=== PATIENT | female | born 1950 | race Caucasian/White ===

== ENCOUNTER 2025-05-04 11:48 | Observation (INO) ==
[2025-05-04 12:42] LABS: Hematocrit (blood only) 39.4 % (37.0-47.0); Hemoglobin 12.7 g/dL (12.0-16.0); Immature Granulocytes # (auto) 0.09 K/uL (0.01-0.20); Immature Granulocytes % (auto) 0.8 %; Mean Corpuscular Hemoglobin 25.8 pg (25.0-34.0); Mean Corpuscular Volume 80.1 fL (80.0-100.0); Platelet Count 186 K/uL (130-400); RDW Standard Deviation 38.7 fL (36.4-46.3); Red Blood Count 4.92 M/uL (4.20-5.40); White Blood Count 11.44 K/ul (4.8-10.8)
[2025-05-04 13:01] LABS: INR 1.2 (0.9-1.1); Partial Thromboplastin Time 27 Seconds (21-31); Prothrombin Time 12.2 Seconds (9.0-12.0)
--- NOTE | 2025-05-04 13:04 | XRay Report ---
XR chest 1V not portable CLINICAL HISTORY: Chest pain, nonspecific COMPARISON STUDY: None FINDINGS: Lower thoracic spine neurostimulator lead is present. Heart size and pulmonary vasculature are normal. No consolidation or pleural effusion. No pneumothorax. IMPRESSION: No acute findings. ACT 112: Negative or not required by law. Electronically signed by: Ortiz Keene M.D. 05/04/2025 1:03 PM
--- NOTE | 2025-05-04 14:58 | Electrocardiogram Report ---
Test Reason : Blood Pressure : */* mmHG Vent. Rate : 89 BPM Atrial Rate : 89 BPM P-R Int : 114 ms QRS Dur : 86 ms QT Int : 368 ms P-R-T Axes : -10 -49 37 degrees QTcB Int : 447 ms Normal sinus rhythm Left anterior fascicular block Abnormal ECG No previous ECGs available Confirmed by Car Parish ([id number]) on 05/04/2025 2:58:24 PM Referred By: Confirmed By: Car Parish
[2025-05-04 15:50] LABS: Alanine Aminotransferase 38.0 U/L (7-52); Albumin Globulin Ratio 1.1 (0.9-2); Albumin Level 3.7 gm/dl (3.4-5.0); Alkaline Phosphatase 81.0 U/L (34-104); Anion Gap 10.0 (3-11); Bilirubin,Total 0.8 mg/dl (0.2-1.0); Blood Urea Nitrogen 22.0 mg/dl (6-23); Calcium 9.0 mg/dl (8.6-10.3); Carbon Dioxide 23.0 mmol/L (21-32); Chloride 104.0 mmol/L (98-107); Creatinine Clr Calc Pharmacy 51.2 ml/min; Globulin 3.4 gm/dl (2.5-4.0); Glucose 111.0 mg/dl (70-99(Fasting)); Potassium 4.0 mmol/L (3.5-5.1); Sodium 137.0 mmol/L (136-145); Total Protein 7.1 gm/dl (6.0-8.3)
[2025-05-04] MEDS: OPTIRAY 320 125ml IV ONE (16:16)
--- NOTE | 2025-05-04 16:21 | Emergency Department Note ---
Impression & Plan Pulmonary embolism ED Provider Note NAME: CARLOS PICKERING AGE: 74 SEX: F ARRIVES VIA: Walk-In INFORMANT: Patient, ED PROVIDER(S): Og Clemens MD CHIEF COMPLAINT: Shortness of breath, leg pain PLAN: Disposition: Hospitalization Condition: Serious Outpatient prescription management: [none] Referral: [] MEDICAL DECISION MAKING: Patient with history of saddle pulmonary embolism 3 years ago while in [place]. She was on Eliquis at that time and this was weaned down over time for her D-dimer tract and her client insights consultant managed her medications. She was on 2.5 and then stopped it about a month ago. She said increased shortness of breath over the last 4 to 5 days and she also noted some leg swelling and leg pain. Patient found to have PEs on CTA, also likely has DVTs but ultrasound is pending. Her troponin is minimally elevated, remainder of the blood work is generally reassuring as well. Given the amount of clot burden, I think she would benefit from heparin, hospitalization before transitioning to Eliquis. She does feel fairly short of breath despite her normal oxygen levels and normal heart rate. 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 There was mention of an intolerance to blood thinners, however she has tolerated heparin in the past along with Eliquis. She had a previous platelet dysfunction but responded well to anticoagulation in the past. Triage Nursing notes reviewed and agree them. Vital Signs: reviewed and remarkable for [no significant abnormalities] Differential diagnosis: PE, pneumonia, congestive heart failure, DVT, lymphedema ER treatment provided: Patient initiated on heparin drip for bilateral PE Diagnostics interpreted by me: ECG: Normal sinus rhythm, no T wave changes or ST segment changes Cardiac Monitoring: Normal sinus rhythm Laboratory studies: [See below] Borderline troponin, Imaging studies: [See below] Acute pulmonary embolism, fairly large, not saddle. Also with mixed evidence of DVT on venous ultrasound Consultation(s): Case to be discussed with the hospitalist for hospitalization. Case also discussed with radiology HPI: 74/F arrives for evaluation of Shortness of breath, leg pain. Patient states she had a previous saddle PE diagnosed 2 years ago. She was on Eliquis after that, she states she has been "weaning yourself down" from the Eliquis. She stopped it about a month ago. She noted some swelling to her lower extremities and started with shortness of breath over the last week or so. She was concerned about the possibility of DVT and PE. She states she gets her dimers checked once every month or so to trend her levels. ROS: See above HPI for pertinent positives & negatives. A total of [10] systems reviewed and were otherwise negative. PAST MEDICAL HISTORY:[See Below] PAST SURGICAL HISTORY:[See Below] FAMILY HISTORY:[See Below] SOCIAL HISTORY:[See Below] HOME MEDICATIONS:[See Below] ALLERGIES:Patient with listed "allergies" to blood thinners and antiplatelets, she has tolerated heparin and Eliquis in the past and seems to be more of a patient preference due to a unspecified platelet disorder. VITALS:[See Below] PHYSICAL EXAMINATION: Gen: No acute distress, generally well appearing Eyes: PERRL, no redness or injection, EOMI Neck: Supple, normal ROM CV: S1, S2, No murmurs, no lower extremity edema Pulm: CTA bilaterally, no increased work of breathing, no wheezing GI: Abd soft, nontender, normal bowel sounds, no distension : No CVA tenderness, no suprapubic abdominal tenderness or distension Neuro: No acute focal neuro deficits, normal strength and sensation MSK: Bilateral lower extremity swollen, right worse than left, some mild tenderness in the calf area, suspicious for right lower extremity DVT. Skin: No rashes, wounds, or erythema. ED COURSE: Times/Reassessments: 4:00 PM: Patient assessed, had oxygen saturation of 100%, heart rate in the 80s and normal blood pressure. She does seem slightly winded but not severely short of breath and in no acute distress. Bilateral lower extremities are swollen. 4:33 PM: Patient CT scan reviewed, she does have bilateral PEs, does look to be in the more proximal vessels but not a saddle PE. She remains relatively hemodynamically stable, plan for venous duplex of the lower extremities as well to evaluate clot burden. She does have DVT symptoms. Given moderate clot burden and DVT symptoms I think she would benefit from heparin and hospitalization. 5:25 PM: Patient with confirmed bilateral PEs with fairly large clot burden seen on CT scan by the radiologist. They do see may be early right heart strain. Patient remains hemodynamically stable, heparin drip ordered, pharmacy verifying. Og Clemens MD Past Med/Surg History Problem List (Updated 05/04/25 @ 22:43 by Og Clemens MD) HTN (hypertension) History of pulmonary embolism Pulmonary embolism (Acute) Social History Smoking Status: Former smoker Hx Alcohol Use: No Hx Substance Use: No Preferred Language: Egyptian Communication Ability: Effective Education Instructor Required: No Beliefs That Will Affect Care: None Current Living Situation: Spouse Feels Safe at Home: Yes Assistive Devices: Cane, Denture - Upper and Walker Allergies Allergies Allergy/AdvReac Type Severity Reaction Status Date / Time pentazocine Allergy Severe SEIZURES Verified 05/04/25 19:39 chloramphenicol Allergy Intermediate HIVES, SOB Verified 05/04/25 19:39 aspirin Allergy Unknown SEIZURES Verified 05/04/25 19:39 amantadine AdvReac Severe Rectal Unverified 05/04/25 19:39 Bleeding latex AdvReac Intermediate SKIN Verified 05/04/25 19:39 BLISTERING,ITCHINESS BLOOD THINNERS Allergy Unknown BLEEDING Uncoded 05/04/25 19:39 Home Meds Home Medications Medication Instructions Recorded Confirmed milk thistle 400 mg PO DAILY ##0 10/06/09 05/04/25 acetaminophen 500 mg tablet 500 mg PO Q6H PRN Pain 05/04/25 05/04/25 apixaban 2.5 mg tablet (Eliquis) 2.5 mg PO BID 05/04/25 05/04/25 carvedilol 6.25 mg tablet 6.25 mg PO BID 05/04/25 05/04/25 cetirizine 10 mg tablet (Zyrtec) 10 mg PO DAILY PRN Allergic 05/04/25 05/04/25 Reaction cyclobenzaprine 10 mg tablet 10 mg PO Q8H 05/04/25 05/04/25 desmopressin 10 mcg/spray (0.1 mL) 1 spray intranasal DAILY 05/04/25 05/04/25 nasal spray (non-refrigerated) loperamide 2 mg tablet (Imodium 2 mg PO QID PRN upset stomach 05/04/25 05/04/25 A-D) olmesartan 40 mg tablet 40 mg PO QPM 05/04/25 05/04/25 oxycodone-acetaminophen 5 mg-325 1 tab PO Q6H PRN Pain 05/04/25 05/04/25 mg tablet tobramycin 0.3 %-dexamethasone 0.1 1 drp OPB QID 05/04/25 05/04/25 % eye drops,suspension Results & Data (ED) Vital Signs Vital Signs - 24 hr 05/04/25 11:53 05/04/25 11:58 05/04/25 15:34 Temperature 37.1 C Temperature Source Temporal Artery Scan Pulse Rate 93 H Pulse Rate [Apical] 89 Pulse Rate from SpO2 Sensor Respiratory Rate 20 20 Respiratory Effort / Characteristics Non-Labored Spontaneous Respiratory Depth Normal Normal Respiratory Pattern Regular Regular Blood Pressure 126/83 Blood Pressure [Right Arm] 139/89 Blood Pressure Mean 97 Blood Pressure Mean [Right Arm] 105 Pulse Oximetry 98 96 Oxygen Delivery Method Room Air Room Air Sepsis Recent Fever Within 48 Hours No Sepsis New/Unexplained Change in Mental Status N/A Sepsis Action Taken by Nursing No Action Required 05/04/25 15:34 05/04/25 15:40 05/04/25 16:33 Temperature Temperature Source Pulse Rate 82 Pulse Rate [Apical] Pulse Rate from SpO2 Sensor 81 Respiratory Rate 25 H Respiratory Effort / Characteristics Respiratory Depth Respiratory Pattern Blood Pressure 162/84 H Blood Pressure [Right Arm] Blood Pressure Mean 110 Blood Pressure Mean [Right Arm] Pulse Oximetry 96 98 Oxygen Delivery Method Room Air Sepsis Recent Fever Within 48 Hours Sepsis New/Unexplained Change in Mental Status Sepsis Action Taken by Nursing 05/04/25 17:00 05/04/25 17:00 Temperature Temperature Source Pulse Rate 76 79 Pulse Rate [Apical] Pulse Rate from SpO2 Sensor 77 Respiratory Rate 17 Respiratory Effort / Characteristics Respiratory Depth Respiratory Pattern Blood Pressure 166/92 H 166/92 H Blood Pressure [Right Arm] Blood Pressure Mean 116 126 Blood Pressure Mean [Right Arm] Pulse Oximetry 95 98 Oxygen Delivery Method Sepsis Recent Fever Within 48 Hours Sepsis New/Unexplained Change in Mental Status Sepsis Action Taken by [facility] Medications Current Medication List: was personally reviewed by me Additional Comments: Recently stopped Eliquis approximately 1 month ago Laboratory Data Attestation: I reviewed the patient's lab results. Borderline troponin, otherwise normal kidney function, normal CBC. Plan add on coags given needing heparin drip. 05/04/25 12:13 05/04/25 15:17 Lab Results 05/04/25 05/04/25 Range/Units 12:13 15:17 WBC 11.44 H (4.8-10.8) K/ul RBC 4.92 (4.20-5.40) M/uL Hgb 12.7 (12.0-16.0) g/dL Hct 39.4 (37.0-47.0) % MCV 80.1 (80.0-100.0) fL MCH 25.8 (25.0-34.0) pg MCHC 32.2 (32.0-36.0) g/dL RDW Std Deviation 38.7 (36.4-46.3) fL RDW Coeff of Leta 13.3 (11.5-14.5) % Plt Count 186 (130-400) K/uL MPV 11.4 (9.4-12.4) fL Immature Gran % (Auto) 0.8 % Neut % (Auto) 75.5 % Lymph % (Auto) 11.8 % Graham % (Auto) 8.0 % Eos % (Auto) 3.6 % Baso % (Auto) 0.3 % Neut # (Auto) 8.64 H (1.40-6.50) K/uL Lymph # (Auto) 1.35 (1.20-3.40) K/uL Graham # (Auto) 0.91 H (0.11-0.59) K/uL Eos # (Auto) 0.41 (0.00-0.50) K/uL Baso # (Auto) 0.04 (0.00-0.20) K/uL Immature Gran # (Auto) 0.09 (0.01-0.20) K/uL PT 12.2 H (9.0-12.0) Seconds INR 1.2 H (0.9-1.1) APTT 27 (21-31) Seconds PTT Ratio 1.0 Sodium 137 (136-145) mmol/L Potassium 4.0 (3.5-5.1) mmol/L Chloride 104 (98-107) mmol/L Carbon Dioxide 23 (21-32) mmol/L Anion Gap 10 (3-11) BUN 22 (6-23) mg/dl Creatinine 1.16 (0.6-1.2) mg/dl Est Cr Clr Drug Dosing 51.2 ml/min eGFR 49.47 BUN/Creatinine Ratio 19.0 (10-20) Glucose 111 H (70-99(Fasting)) mg/dl Calcium 9.0 (8.6-10.3) mg/dl Total Bilirubin 0.8 (0.2-1.0) mg/dl AST 30 (13-39) U/L ALT 38 (7-52) U/L Alkaline Phosphatase 81 (34-104) U/L Troponin I High Sens 15.2 H (0-14) pg/ml Total Protein 7.1 (6.0-8.3) gm/dl Albumin 3.7 (3.4-5.0) gm/dl Globulin 3.4 (2.5-4.0) gm/dl Albumin/Globulin Ratio 1.1 (0.9-2) Administered Medications Oxycodone/Acetaminophen (Oxycodone/Acetaminophen 5mg/325mg Tab) 1 tab PO Q8H PRN PRN Reason: Pain 7,8,9,10 Stop: 05/18/25 21:01 Last Admin: 05/04/25 21:36 Dose: 1 tab Documented By: ATS Discontinued Medications Heparin Sodium (Porcine) (Heparin Sod (Porcine) 1000 Unit/Ml) 1 units IV NOW ONE Stop: 05/04/25 17:00 Last Admin: 05/04/25 18:56 Dose: Not Given Documented By: michell Heparin Sodium/Dextrose (Heparin Iv Adult Wt-Based Standard W/ Initial Bolus Protocol) 1 each IV NOW STA; Protocol Stop: 05/04/25 16:45 Last Admin: 05/04/25 17:46 Dose: Not Given Documented By: LATOYA Heparin Sodium/Dextrose (Heparin 57990 Unit/500 Ml D5w) 25,000 units in 500 mls @ 27 mls/hr IV .[id number] [facility]; Protocol Stop: 06/03/25 16:59 Last Admin: 05/04/25 18:56 Dose: Not Given Documented By: michell Ioversol (Optiray 320 125ml) 117 ml IV ONCE ONE Stop: 05/04/25 16:16 Last Admin: 05/04/25 16:16 Dose: 117 ml Documented By: Imaging Data Attestation: I personally reviewed and interpreted this imaging study as follows: My Impression: Acute pulmonary embolism, bilaterally, no saddle PE Radiologist's Impression: Chest X-Ray 05/04/25 11:58 XR chest 1V not portable CLINICAL HISTORY: Chest pain, nonspecific COMPARISON STUDY: None FINDINGS: Lower thoracic spine neurostimulator lead is present. Heart size and pulmonary vasculature are normal. No consolidation or pleural effusion. No pneumothorax. IMPRESSION: No acute findings. ACT 112: Negative or not required by law. Electronically signed by: Ortiz Keene M.D. 05/04/2025 1:03 PM Chest CTA 05/04/25 15:45 Exam: CT angiogram chest with pulmonary embolus protocol. Reason for exam: Shortness of breath with history of previous pulmonary emboli. Previous studies: None available. FINDINGS: The study is positive with a large number of filling defects in the main pulmonary arteries bilaterally. No central saddle embolus is seen at this time. Multiple small emboli projected below the pulmonary arteries bilaterally. The ventricular is mildly enlarged suggesting right ventricular strain physiology. The shows no evidence of aneurysm or dissection at the examined levels. There is a small right pleural effusion with some areas of atelectasis in the right lower lobe. IMPRESSION: 1. Positive study for pulmonary emboli with a relatively large clot burden and probable early right ventricular strain physiology. 2. Negative for aortic aneurysm or dissection. 3. Small right pleural effusion with some atelectasis in the right lower lobe. Lungs otherwise clear. The emergency department physician was informed of this finding at 1720 hours on today's date. Electronically signed by Ortiz Estrella 05-04-2025 5:27 PM Venous Doppler Study 05/04/25 16:24 Exam: Venous Doppler ultrasound lower extremities bilateral. Reason for exam: Pulmonary embolus. History of DVT. FINDINGS: The study is positive. There is mixed occlusive and subocclusive thrombus seen in the mid distal right femoral vein, popliteal vein lesser saphenous vein to the mid calf. Duplicated posterior tibial veins show thrombus as does one of 2 peroneal veins. In the left lower extremity there is nonocclusive thrombus seen in the distal femoral vein, distal popliteal vein and 2 of 2 paired posterior tibial veins. Some thrombus with intact flow is seen in the left peroneal vein. Left anterior tibial veins appear patent. IMPRESSION: Positive study. 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 Electronically signed by Ortiz Estrella 05-04-2025 7:18 PM Discharge Plan Visit Data Chief Complaint: Shortness of Breath/Dyspnea Stated Complaint: SOB ED Provider: Og Clemens Discharge Problem: Pulmonary embolism Patient Disposition: Admitted As Inpatient Condition: Serious Discharge Instructions Interventions: ED Discharge Assessment Last Done: 05/04/25 18:47
--- NOTE | 2025-05-04 17:28 | CT Scan Report ---
Exam: CT angiogram chest with pulmonary embolus protocol. Reason for exam: Shortness of breath with history of previous pulmonary emboli. Previous studies: None available. FINDINGS: The study is positive with a large number of filling defects in the main pulmonary arteries bilaterally. No central saddle embolus is seen at this time. Multiple small emboli projected below the pulmonary arteries bilaterally. The ventricular is mildly enlarged suggesting right ventricular strain physiology. The shows no evidence of aneurysm or dissection at the examined levels. There is a small right pleural effusion with some areas of atelectasis in the right lower lobe. IMPRESSION: 1. Positive study for pulmonary emboli with a relatively large clot burden and probable early right ventricular strain physiology. 2. Negative for aortic aneurysm or dissection. 3. Small right pleural effusion with some atelectasis in the right lower lobe. Lungs otherwise clear. The emergency department physician was informed of this finding at 1720 hours on today's date. Electronically signed by Ortiz Estrella 05-04-2025 5:27 PM
[2025-05-04] MEDS: Heparin IV Adult Wt-Based Standard w/ INITIAL Bolus Protocol IV STA (17:46)
--- NOTE | 2025-05-04 18:34 | History & Physical Report ---
Date of Service May 04, 2025 Assessment & Plan (1) Pulmonary embolism: (2) History of pulmonary embolism: (3) HTN (hypertension): Plan Patient is a 74yo F who presented into the hospital with shortness of breath after discontinuing her eliquis on 04/07/25. Chest CT showed positive study for PE. Will admit to monitor for worsening symptoms. PE - Will start patient on Eliquis 10mg for 7 days. Will not use heparin. - Her 02 sat is 98% on room air and is otherwise hemodynamically stable. - EKG showed normal sinus rhythm, and left anterior fascicular block - CBC w/diff and BMP in AM - Will continue to monitor. HTN - Continue olmesartan - Continue diltiazem Elevated Troponin - Trops were 15.2 - Will repeat troponin again until peak. Code Status: Full DVT Prophylaxis: Eliquis History of Present Illness Chief Complaint: Shortness of Breath Primary Care Provider: Valdez Goode MD Patient with history of saddle pulmonary embolism, presents into the hospital with shortness of breath. She states that in October 2021 she had a saddle PE and was then treated with Eliquis. She was originally on 5mg of Eliquis then brought down to 2.5mg. Then on 04/07 took her last dose of 2.5mg. Patient denied any internal bleeding kacey nts for the three years she was on Eliquis. Between 04/28-04/30 she felt very short of breath and pain in her lower back. She states her breathing is getting better, but patient's said it hasnt. On 04/08 or 04/10 felt like her right leg "blew up". She states she has chest pain on exertion but its not in the middle of the chest but more so directed underneath the right breast. Patient does have swollen legs but state they are better than what they were. Denies fever, cough, nausea, headache. Allergies Allergy/AdvReac Type Severity Reaction Status Date / Time pentazocine Allergy Severe SEIZURES Verified 05/04/25 19:39 chloramphenicol Allergy Intermediate HIVES, SOB Verified 05/04/25 19:39 aspirin Allergy Unknown SEIZURES Verified 05/04/25 19:39 amantadine AdvReac Severe Rectal Unverified 05/04/25 19:39 Bleeding latex AdvReac Intermediate SKIN Verified 05/04/25 19:39 BLISTERING,ITCHINESS BLOOD THINNERS Allergy Unknown BLEEDING Uncoded 05/04/25 19:39 Home Medications Medication Instructions Recorded Confirmed Type milk thistle 400 mg PO DAILY ##0 10/06/09 05/04/25 History acetaminophen 500 mg tablet 500 mg PO Q6H PRN Pain 05/04/25 05/04/25 History carvedilol 6.25 mg tablet 6.25 mg PO BID 05/04/25 05/04/25 History cetirizine 10 mg tablet (Zyrtec) 10 mg PO DAILY PRN Allergic 05/04/25 05/04/25 History Reaction cyclobenzaprine 10 mg tablet 10 mg PO Q8H 05/04/25 05/04/25 History desmopressin 10 mcg/spray (0.1 mL) 1 spray intranasal DAILY 05/04/25 05/04/25 History nasal spray (non-refrigerated) loperamide 2 mg tablet (Imodium 2 mg PO QID PRN upset stomach 05/04/25 05/04/25 History A-D) olmesartan 40 mg tablet 40 mg PO QPM 05/04/25 05/04/25 History oxycodone-acetaminophen 5 mg-325 1 tab PO Q6H PRN Pain 05/04/25 05/04/25 History mg tablet tobramycin 0.3 %-dexamethasone 0.1 1 drp OPB QID 05/04/25 05/04/25 History % eye drops,suspension apixaban 5 mg tablet (Eliquis) 5 mg PO BID #74 tabs 05/05/25 Rx Past Med/Surg History Problem List (Updated 05/04/25 @ 22:43 by Og Clemens MD) HTN (hypertension) History of pulmonary embolism Pulmonary embolism (Acute) Social History Smoking Status: Former smoker Hx Alcohol Use: No Hx Substance Use: No Preferred Language: Persian Communication Ability: Effective Plaster Tender Required: No Beliefs That Will Affect Care: None Current Living Situation: Spouse Feels Safe at Home: Yes Assistive Devices: Cane, Denture - Upper and Walker Review of Systems Review of Systems: as per HPI Physical Exam Constitutional: WD/WN, vitals as above Eyes: + anicteric sclerae and EOM intact bilat erally Respiratory: normal respiratory effort, lungs clear to auscultation Cardiovascular: Rate/Rhythm: regular rate and regular rhythm Heart Sounds: normal S1 and normal S2; no murmur Extremities: + edema (legs were swollen B/L but no pitting edema.) Skin: no rashes, warm and dry Psychiatric: Eye Contact: good eye contact Speech: normal rate/rhythm/volume of speech Thought Process: goal directed thought process and linear/logical thought process Results & Data Results & Data Vital Signs (Past 12 Hours) Vital Signs Temp Pulse Pulse Resp BP BP Pulse Ox 05/04/25 17:00 79 166/92 H 98 05/04/25 17:00 76 17 166/92 H 95 05/04/25 16:33 25 H 162/84 H 98 05/04/25 15:40 82 05/04/25 15:34 96 05/04/25 15:34 89 20 139/89 96 05/04/25 11:53 37.1 C 93 H 20 126/83 98 O2 Del Method 05/04/25 17:00 05/04/25 17:00 05/04/25 16:33 05/04/25 15:40 05/04/25 15:34 Room Air 05/04/25 15:34 Room Air 05/04/25 11:53 Room Air Diagnostic Findings Chest X-Ray 05/04/25 11:58 XR chest 1V not portable CLINICAL HISTORY: Chest pain, nonspecific COMPARISON STUDY: None FINDINGS: Lower thoracic spine neurostimulator lead is present. Heart size and pulmonary vasculature are normal. No consolidation or pleural effusion. No pneumothorax. IMPRESSION: No acute findings. ACT 112: Negative or not required by law. Electronically signed by: Ortiz Keene M.D. 05/04/2025 1:03 PM Chest CTA 05/04/25 15:45 Exam: CT angiogram chest with pulmonary embolus protocol. Reason for exam: Shortness of breath with history of previous pulmonary emboli. Previous studies: None available. FINDINGS: The study is positive with a large number of filling defects in the main pulmonary arteries bilaterally. No central saddle embolus is seen at this time. Multiple small emboli projected below the pulmonary arteries bilaterally. The ventricular is mildly enlarged suggesting right ventricular strain physiology. The shows no evidence of aneurysm or dissection at the examined levels. There is a small right pleural effusion with some areas of atelectasis in the right lower lobe. IMPRESSION: 1. Positive study for pulmonary emboli with a relatively large clot burden and probable early right ventricular strain physiology. 2. Negative for aortic aneurysm or dissection. 3. Small right pleural effusion with some atelectasis in the right lower lobe. Lungs otherwise clear. The emergency department physician was informed of this finding at 1720 hours on today's date. Electronically signed by Ortiz Estrella 05-04-2025 5:27 PM Code Status & VTE Plan VTE Prophylaxis Plan VTE Prophylaxis will be ordered: Yes Supervising Physician Co-Signing Physician Notes I personally examined the patient and verified all kruger points of history and exam, discussed case, and agree with decision making with Dr Zonia MONTALVO. feels like prior PEs. symptoms for days - after repeated urgings came to ER. vitals noted nad heent nc at mmm breathing unlabored lungs clear no r/r/w good effort cardio reg. 95+% on room air recurrent PE -extensive bilateral lower extremity DVTs precipitating PE - had stopped eliquis (fear of serious bleeding - but fortunately has not actually had any of significance and was on eliquis for ~3.5yrs since last VTE episode). no indication for thrombolysis/overall stable. restart eliquis (10mg bid x 7 days, then 5mg bid). discussed should be on some dosing indefinitely given recurrence and high risk of additional recurrences if off blood thinners. otherwise as above Resident Activity Tracking Resident Involvement: Resident Care Provided Care Provided: Adult Hospital Medicine
--- NOTE | 2025-05-04 18:45 | Billing Data ---
Date of Service May 04, 2025 Coding Level of Care Code 63814 INT INP/OBS CARE
[2025-05-04] MEDS ORDERED: ACETAMINOPHEN 325 MG TAB PO PRN (18:53)
[2025-05-04] MEDS ORDERED: ONDANSETRON INJ 2 MG/ML 2 ML VIAL IV PRN (18:53)
[2025-05-04] MEDS ORDERED: MELATONIN 3 MG TAB PO PRN (18:53)
[2025-05-04] MEDS ORDERED: POLYETHYLENE (MIRALAX) 17 GM PACK PO PRN (18:53)
[2025-05-04] MEDS: HEPARIN SOD (PORCINE) 1000 UNIT/ML IV ONE (18:56)
[2025-05-04] MEDS: HEPARIN 25000 UNIT/500 ML D5W 25,000 UNITS/500 ML BAG IV SCH (18:56)
--- NOTE | 2025-05-04 19:18 | Ultrasound Report ---
Exam: Venous Doppler ultrasound lower extremities bilateral. Reason for exam: Pulmonary embolus. History of DVT. FINDINGS: The study is positive. There is mixed occlusive and subocclusive thrombus seen in the mid distal right femoral vein, popliteal vein lesser saphenous vein to the mid calf. Duplicated posterior tibial veins show thrombus as does one of 2 peroneal veins. In the left lower extremity there is nonocclusive thrombus seen in the distal femoral vein, distal popliteal vein and 2 of 2 paired posterior tibial veins. Some thrombus with intact flow is seen in the left peroneal vein. Left anterior tibial veins appear patent. IMPRESSION: Positive study. 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 Electronically signed by Ortiz Estrella 05-04-2025 7:18 PM
[2025-05-04] MEDS: APIXABAN 5 MG TABLET PO SCH (22:59)
[2025-05-04] MEDS: LOSARTAN POTASSIUM 25 MG TAB PO SCH (22:59)
[2025-05-05] MEDS: CYCLOBENZAPRINE HCL 10 MG TAB PO PRN (02:50)
[2025-05-05 09:08] LABS: Hematocrit (blood only) 36.8 % (37.0-47.0); Hemoglobin 11.8 g/dL (12.0-16.0); Immature Granulocytes # (auto) 0.10 K/uL (0.01-0.20); Immature Granulocytes % (auto) 1.0 %; Mean Corpuscular Hemoglobin 25.7 pg (25.0-34.0); Mean Corpuscular Volume 80.0 fL (80.0-100.0); Platelet Count 200 K/uL (130-400); RDW Standard Deviation 38.4 fL (36.4-46.3); Red Blood Count 4.60 M/uL (4.20-5.40); White Blood Count 9.85 K/ul (4.8-10.8)
[2025-05-05 09:18] LABS: Anion Gap 11.0 (3-11); Blood Urea Nitrogen 21.0 mg/dl (6-23); Calcium 8.9 mg/dl (8.6-10.3); Carbon Dioxide 23.0 mmol/L (21-32); Chloride 105.0 mmol/L (98-107); Creatinine Clr Calc Pharmacy 61.5 ml/min; Glucose 111.0 mg/dl (70-99(Fasting)); Potassium 3.8 mmol/L (3.5-5.1); Sodium 139.0 mmol/L (136-145)
--- NOTE | 2025-05-05 13:37 | Discharge Summary ---
Date of Service May 05, 2025 Admission HPI Per Admitting Provider Patient with history of saddle pulmonary embolism, presents into the hospital with shortness of breath. She states that in October 2021 she had a saddle PE and was then treated with Eliquis. She was originally on 5mg of Eliquis then brought down to 2.5mg. Then on 04/07 took her last dose of 2.5mg. Patient denied any internal bleeding events for the three years she was on Eliquis. Between 04/28-04/30 she felt very short of breath and pain in her lower back. She states her breathing is getting better, but patient's said it hasnt. On 04/08 or 04/10 felt like her right leg "blew up". She states she has chest pain on exertion but its not in the middle of the chest but more so directed underneath the right breast. Patient does have swollen legs but state they are better than what they were. Denies fever, cough, nausea, headache. Admission Exam Per Admitting Provider Physical Exam Constitutional: WD/WN, vitals as above Eyes: + anicteric sclerae and EOM intact bilat erally Respiratory: normal respiratory effort, lungs clear to auscultation Cardiovascular: Rate/Rhythm: regular rate and regular rhythm Heart Sounds: normal S1 and normal S2; no murmur Extremities: + edema (legs were swollen B/L but no pitting edema.) Skin: no rashes, warm and dry Psychiatric: Eye Contact: good eye contact Speech: normal rate/rhythm/volume of speech Thought Process: goal directed thought process and linear/logical thought process Principal Diagnosis PE Discharge Exam Constitutional WD/WN, vitals as above Eyes + anicteric sclerae and EOM intact bilaterally Respiratory normal respiratory effort, lungs clear to auscultation Cardiovascular Rate/Rhythm: regular rate and regular rhythm Heart Sounds: normal S1 and normal S2; no murmur Skin no rashes, warm and dry Psychiatric Eye Contact: good eye contact Speech: normal rate/rhythm/volume of speech Thought Process: goal directed thought process and linear/logical thought process Discharge Data Allergies Allergy/AdvReac Type Severity Reaction Status Date / Time pentazocine Allergy Severe SEIZURES Verified 05/04/25 19:39 chloramphenicol Allergy Intermediate HIVES, SOB Verified 05/04/25 19:39 aspirin Allergy Unknown SEIZURES Verified 05/04/25 19:39 amantadine AdvReac Severe Rectal Unverified 05/04/25 19:39 Bleeding latex AdvReac Intermediate SKIN Verified 05/04/25 19:39 BLISTERING,ITCHINESS BLOOD THINNERS Allergy Unknown BLEEDING Uncoded 05/04/25 19:39 Consultations 05/04/25 17:43 ED Decision to Admit Stat 05/05/25 11:57 Consult [facility] canal driver Routine Ordered Studies 05/04/25 15:45 CT angio chest PE protocol Stat 05/04/25 16:24 US venous duplex leg [US venous doppler LE BI] Stat Chest X-Ray 05/04/25 11:58 XR chest 1V not portable CLINICAL HISTORY: Chest pain, nonspecific COMPARISON STUDY: None FINDINGS: Lower thoracic spine neurostimulator lead is present. Heart size and pulmonary vasculature are normal. No consolidation or pleural effusion. No pneumothorax. IMPRESSION: No acute findings. ACT 112: Negative or not required by law. Electronically signed by: Ortiz Keene M.D. 05/04/2025 1:03 PM Chest CTA 05/04/25 15:45 Exam: CT angiogram chest with pulmonary embolus protocol. Reason for exam: Shortness of breath with history of previous pulmonary emboli. Previous studies: None available. FINDINGS: The study is positive with a large number of filling defects in the main pulmonary arteries bilaterally. No central saddle embolus is seen at this time. Multiple small emboli projected below the pulmonary arteries bilaterally. The ventricular is mildly enlarged suggesting right ventricular strain physiology. The shows no evidence of aneurysm or dissection at the examined levels. There is a small right pleural effusion with some areas of atelectasis in the right lower lobe. IMPRESSION: 1. Positive study for pulmonary emboli with a relatively large clot burden and probable early right ventricular strain physiology. 2. Negative for aortic aneurysm or dissection. 3. Small right pleural effusion with some atelectasis in the right lower lobe. Lungs otherwise clear. The emergency department physician was informed of this finding at 1720 hours on today's date. Electronically signed by Ortiz Estrella 05-04-2025 5:27 PM Venous Doppler Study 05/04/25 16:24 Exam: Venous Doppler ultrasound lower extremities bilateral. Reason for exam: Pulmonary embolus. History of DVT. FINDINGS: The study is positive. There is mixed occlusive and subocclusive thrombus seen in the mid distal right femoral vein, popliteal vein lesser saphenous vein to the mid calf. Duplicated posterior tibial veins show thrombus as does one of 2 peroneal veins. In the left lower extremity there is nonocclusive thrombus seen in the distal femoral vein, distal popliteal vein and 2 of 2 paired posterior tibial veins. Some thrombus with intact flow is seen in the left peroneal vein. Left anterior tibial veins appear patent. IMPRESSION: Positive study. 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 Electronically signed by Ortiz Estrella 05-04-2025 7:18 PM Hospital Course (1) Pulmonary embolism: (2) History of pulmonary embolism: (3) HTN (hypertension): Plan Patient is a 74yo F who presented into the hospital with shortness of breath after discontinuing her eliquis on 04/07/25. Chest CT showed positive study for PE. Will admit to monitor for worsening symptoms. PE - Will start patient on Eliquis 10mg for 7 days. Last dose is morning of 05/11/24. 5mg start on evening of 05/11/25. Can change back to 2.5mg if symptoms are resolved and back to normal in 3-6 months. - Her 02 sat is 98% on room air and is otherwise hemodynamically stable. - EKG showed normal sinus rhythm, and left anterior fascicular block - CBC w/diff and BMP in AM - Will continue to monitor. HTN - Continue olmesartan - Continue diltiazem Elevated Troponin - Trops trended were 15.2 but trended downwards. Code Status: Full DVT Prophylaxis: Eliquis Total Time Total Time Spent Total Time Spent (In Minutes): <30 Discharge Plan Discharge Items Patient Disposition: Home - Self-Care Reason For Visit: PE Discharge Diagnosis: PE Condition on Discharge: Fair Activity: Resume your previous activity Non-emergency contact: Primary Care Provider Call non-emergency contact if: your symptoms worsen, your pain is not controlled, your pain is worsening and your temperature is above 101.5 Follow-up/Referrals: Shamir Kingston MD [Outside Practitioners] - (Follow up ~1 week) Valdez Goode MD [Primary Care Provider] - 05/15/25 2:00 pm Diet: Heart Healthy Addtl Attending Provider Instructions: You were admitted into the hospital due to shortness of breath. We provided imaging of your chest to see what could be causing you to have trouble breathing. We found on the CT scan that you had clots in your lungs, otherwise known as "pulmonary embolisms". We started you back on Eliquis 10mg to help prevent more clots being formed. Yesterday we talked about pulmonary embolisms which are clots that go into your lung which blocks the blood reaching to a part of the lung to get oxygen. We wanted to watch you over the night to make sure everything was okay. Today you seem good to leave and go back home. We talked about strokes with you yesterday and discussed about the anatomy of the heart. The left and right atrium are the top chambers of our heart, and when we are in our mother's belly we have a little hole between the left and right atria, which is normal. Then once we are born a majority of people have that hole closed. We believe you are one of the majority. This is because blood flow goes from the right atrium to the right ventricle to the pulmonary artery to the lungs, then goes fom the lungs to the left side of the heart, then out to the rest of your body. If you had a hole in your left and right atrium, some blood can skip going to the lung and go to the left side of the heart, which will then go to the rest of the body. If you had a clot go to your brain, it would have to go through that hole. However because you had a pulmonary embolism, it shows that you did not have a hole in you heart, and instead the clot went to your michelle gs. We also discussed how the body gets rid of clots. After a while, your body either gets rid of the clot, or it gets compressed down towards the bottom of your blood vessel. This is why the repeat imaging of your chest didn't show any clots. You also brought up the good question of if you need to be on Eliquis indefinitely, and we recommend you do so. Not only did you have a pulmonary embolism in 2021, but when you tried to be off Eliquis on 04/07/25, you had another clot within less than a month. And sadly since this is an "unprovoked" clot (a clot that forms without any obvious reason, such as a car crash breaking your legs), studies have shown that the chance of getting another clot in 5 years is 30% if you are not on blood thinners. It seems like your body just likes to create clots compared to other people. Fortunately, when you were on Eliquis you didn't have any bleeding events which is a great sign. With all those reasons, we recommend to be on the Eliquis indefinitely. Please follow-up with you PCP within the next week and the stone crusher operator within the next week or two to monitor your symptoms and to discuss your Eliquis. Medication Change - Eliquis: Take 10mg (2 tabs twice a day) by mouth for 7 days. Followed by 5mg (one tab twice a day) by mouth. Last dose of 10mg should be the morning of 05/11/25. Start 5mg dose in the evening of 05/11/25. CONTACT YOUR PRIMARY CARE PROVIDER if you experience any of the following: Worsening of symptoms Fever, chills, or fatigue Difficulty following your treatment plan, or difficulty taking medications CALL 911 OR GO TO THE EMERGENCY DEPARTMENT if you experience any of the following: Sudden, severe abdominal pain or nausea/vomiting Severe chest pain, or chest pain that radiates (moves) to your jaw or arm Sudden, severe shortness of breath or difficulty breathing Thank you for allowing us to participate in your care. Pending Studies at Discharge: No Stand-Alone Forms: [facility], Smoking Cessation Medications and DC Order Prescriptions: New Eliquis 5 mg tablet 5 mg PO BID Qty: 74 0RF Rx Instructions: Take 10mg (2 tabs twice a day) by mouth for 7 days. Followed by 5mg (one tab twice a day) by mouth. Last dose of 10mg should be the morning of 05/11/25. Start 5mg dose in the evening of 05/11/25. Continued milk thistle 400 mg PO DAILY Qty: 0 cyclobenzaprine 10 mg tablet 10 mg PO Q8H carvedilol 6.25 mg tablet 6.25 mg PO BID cetirizine [Zyrtec] 10 mg Tablet 10 mg PO DAILY PRN (Reason: Allergic Reaction) desmopressin 10 mcg/spray (0.1 mL) spray with pump 1 spray INTRANASAL DAILY loperamide [Imodium A-D] 2 mg Tablet 2 mg PO QID PRN (Reason: upset stomach) acetaminophen 500 mg Tablet 500 mg PO Q6H PRN (Reason: Pain) oxycodone-acetaminophen 5-325 mg tablet 1 tab PO Q6H PRN (Reason: Pain) tobramycin-dexamethasone 0.3-0.1 % drops,suspension 1 drp OPB QID Rx Instructions: for one week then stop olmesartan 40 mg tablet 40 mg PO QPM Discontinued Eliquis 2.5 mg tablet 2.5 mg PO BID Rx Instructions: patient had stopped taking; last dose was 04/07/25 Discharge Orders: Discharge Order (Routine); Ordered 05/05/25 Ordered By: Mega Gonzalez/Other Patient Handouts: Eating Heart-Healthy Foods Admission Data Admit Date/Time: 05/04/25 18:32 Attending Provider: Valdez Deal Admit Provider: Mega Brar Primary Care Provider: Valdez Goode Other Providers: Corin Coffey; Valdez Deal Other Interventions: Discharge Summary Assessment (RN) Last Done: 05/05/25 14:23 Supervising Physician Co-Signing Physician Notes I personally examined the patient and verified all kruger points of history and exam, discussed case, and agree with decision making with Dr Brar still MONTALVO but feels better, feels up to going home. vitals noted nad heent nc at mmm breathing unlabored lungs clear no r/r/w good effort cardio reg. recurrent PE - had stopped eliquis (fear of serious bleeding - but fortunately has not actually had any of significance and was on eliquis for ~3.5yrs since last VTE episode). no indication for thrombolysis/overall stable on presentation. admitted to follow and ensure no worsening of sx or decompensation - stayed stable. restart eliquis (10mg bid x 7 days, then 5mg bid). discussed should be on some dosing indefinitely given recurrence and high risk of additional recurrences if off blood thinners. close and ongoing outpt f/u. otherwise as above Resident Activity Tracking Resident Involvement: Resident Care Provided Care Provided: Adult [facility]
--- NOTE | 2025-05-05 14:38 | Billing Data ---
Date of Service May 05, 2025 Coding Level of Care Code 17919 IN/OBS DISCH 30 MIN/LESS
--- NOTE | 2025-05-05 14:39 | Billing Data ---
Date of Service May 05, 2025 Coding Level of Care Code 29406 IN/OBS DISCH 30 MIN/LESS
== END 2025-05-05 15:05 | disposition home or self-care (01) | DRG 176 ==
LOC: ED 11:48 → EDINP 18:32 → INTOOBSV 18:32 → 3N 18:47